=== PATIENT | female | born 1950 | race Two or more races ===

== ENCOUNTER 2024-06-04 14:30 | Inpatient (IN) | payer OTHER ==
[~2024-06-04] VITALS: Ht 154.9 cm; Wt 95.5 kg
--- NOTE | 2024-06-04 15:40 | ED.PDOC ---
SOB-HPI HPI Comments HPI: Poor Historian. 74-year-old female sent by Dr. Eddy office the systems development consultant/critical care for admission to the hospital. Patient has been having hemoptysis for at least two months that is progressively getting worse. 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 She is on Xarelto for history of atrial fibrillation. Patient was found to be hypoxic per the note accompanying her records of 87% at room air. She does not use oxygen at home. Dr. Eddy wants to admitted to the hospital for possible bronchoscopy and further evaluation and repeat CT scan of the chest. Patient is on Xarelto. Vitals: respiratory rate of 16, SpO2 of 93%RA, pulse rate of 70, and a blood pressure of 156/76 PMHx: CHF, AFIB, HTN, asthma, Xarelto/Lasix use PSHx: hysterectomy, appendectomy, cholecystectomy REVIEW OF SYSTEMS: CONSTITUTIONAL: Denies acute: fever, diaphoresis, chills, HEAD: Denies acute: headache, photophobia Eyes: Denies acute: Double vision, vision loss, eye pain, eye discharge. EARS: Denies acute: tinnitus, hearing loss, ear discharge, ear pain, THROAT: Denies acute: sore throat, swelling, difficulty swallowing , pain with swallowing, change in voice. NECK: Denies acute: neck pain, neck swelling, stiff neck. HEART: Denies acute : chest pain, palpitations, LUNGS: Denies acute: wheezing, cough, ABDOMEN: Denies acute: abdominal pain, Nausea, Vomiting, diarrhea, melena , hematemesis, hematochezia SKIN: Denies acute: rash, redness, lesions, itchiness. EXTREMITIES: Denies acute: calf pain, numbness, tingling, weakness, denies pain in extremity. Denies acute: Low back pain. Neuro: Denies acute: focal neurological deficit, motor or sensory focal neurological deficit, tremors, seizure like activity, confusion, dizziness, change in mental status, loss of bowel or bladder function, cauda equina like symptoms. : Denies acute: dysuria, hematuria, flank pain, increase in urinary frequency. PSYCH: Denies acute: hallucination, suicidal ideation, homicidal ideation. FEMALE: Denies acute: abnormal vaginal bleeding, foul odor, unusual discharge. PHYSICAL EXAM: General: no acute distress, awake and alert. Head: normocephalic, atraumatic. Neck: supple, trachea is midline, no swelling. Throat: Normal phonation. Eyes:, no erythema, no purulent discharge, no proptosis, no icterus. Heart: regular rate, regular rhythm, no significant murmur appreciated. Lungs: no apparent respiratory distress, Able to speak in full sentences. No wheezing, no rhonchi, no crackles. No stridors Clear to auscultation bilaterally. Abdomen: non tender to palpation, non distended, soft, no guarding, no rebound, + bowel sounds. Neuro: Awake, Alert, oriented to name, self, situation, follows commands GCS=15. Speech is normal. Skin: no petechia, no purpura, no cyanosis, non-pale, not jaundice. Lower extremities: --2/4 b/l - Pitting edema no deformity, no focal swelling, no calf TTP. Makes eye contact. moves all four extremities. Face: no apparent facial droop. Ambulating in the ED independently. Chief Complaint: Shortness of Breath Time Seen by MD: 15:15 Reviewed notes: Nurses Notes, Allergies Information Source: Patient Mode of Arrival: Ambulatory Was a procedure done? Was a procedure done?: No Differential Dx Differential Diagnosis: Other (DDx include ACS, unstable angina, anxiety, PE, pneumothroax, neoplasm, cardiac ischemia, COPD, asthma, CHF, pleural effusion, tobacco abuse, pneumonia, hypoxia, hypercapnia, anemia., infection/sepsis., pulmonary edema. Asthma, Cardiac tamponade, infection.) X-Ray, Labs, Meds, VS Vital Signs Date Time Temp Pulse Resp B/P (MAP) Pulse Ox O2 Delivery O2 Flow Rate FiO2 06/04/24 18:28 95 Room Air 0.0 06/04/24 18:28 95 Room Air* 0 21 06/04/24 15:23 71 06/04/24 15:15 98.0 70 16 156/76 (102) 93 Lab Test 06/04/24 18:47 06/04/24 16:35 06/04/24 15:42 Range/Units Troponin I High Sensitivity 37 *H 35 *H 34 </=34 ng/L White Blood Count 6.4 4.4-10.8 10^3/uL Red Blood Count 3.46 L 4.0-5.20 10^6/uL Hemoglobin 11.5 L 12.2-16.2 g/dL Hematocrit 34.2 L 36.0-46.0 % Mean Corpuscular Volume 98.9 80.0-100.0 fL Mean Corpuscular Hemoglobin 33.3 H 28.0-32.0 pg Mean Corpuscular Hemoglobin Concent 33.6 32.0-36.0 g/dL Red Cell Distribution Width 16.3 H 11.8-14.3 % Platelet Count 281 140-450 10^3/uL Mean Platelet Volume 7.2 6.9-10.8 fL Neutrophils (%) (Auto) 67.8 37.0-80.0 % Lymphocytes (%) (Auto) 17.4 10.0-50.0 % Monocytes (%) (Auto) 13.0 H 0.0-12.0 % Eosinophils (%) (Auto) 1.3 0.0-7.0 % Basophils (%) (Auto) 0.5 0.0-2.0 % Neutrophils # (Auto) 4.3 1.6-8.6 10 ^3/uL Lymphocytes # (Auto) 1.1 0.4-5.4 10 ^3/uL Monocytes # (Auto) 0.8 0-1.3 10 ^3/uL Eosinophils # (Auto) 0.1 0-0.8 10 ^3/uL Basophils # (Auto) 0 0-0.2 10 ^3/uL Nucleated Red Blood Cells 0.1 % Prothrombin Time 11.7 9.3-11.8 sec Prothrombin Time INR 1.11 0.9-1.15 Activated Partial Thromboplast Time 38.4 H 24.5-34.5 SEC Sodium Level 144 136-145 mmol/L Potassium Level 3.3 L 3.5-5.1 mmol/L Chloride Level 105 98-107 mmol/L Carbon Dioxide Level 31 20-31 mmol/L Anion Gap 8 5-15 Blood Urea Nitrogen 12 9-23 mg/dL Creatinine 0.69 0.550-1.02 mg/dL Glomerular Filtration Rate Calc 91 >90 mL/min BUN/Creatinine Ratio 17.4 10.0-20.0 Serum Glucose 102 74-106 mg/dL Lactic Acid Level 1.2 0.4-2.0 mmol/L Calcium Level 9.0 8.7-10.4 mg/dL Total Bilirubin 0.5 0.2-1.0 mg/dL Aspartate Amino Transferase (AST) 18 13-40 U/L Alanine Aminotransferase (ALT) 15 7-40 U/L Alkaline Phosphatase 124 H 46-116 U/L B-Type Natriuretic Peptide 528.88 0-100 pg/mL Total Protein 5.8 5.7-8.2 g/dL Albumin 3.7 3.2-4.8 g/dL [place] [id number] Ph: [phone] DIAGNOSTIC IMAGING Diagnostic Imaging Report : [id number] Signed PATIENT: GERARDO VALENTIN ACCT: [id number] UNIT: [id number] : 1950 LOC: TELE ROOM / BED: [address] [place] [address] AGE / SEX: 74 / F ADM STATUS: ADM IN SERVICE 1609 ORDERING PHYSICIAN: SID VAZQUEZ DO PROCEDURE(s): CTACH - CT ANGIO CHEST CONTRAST REASON: Hemoptysis, lung mass ORDER NUMBER(s): [id number], ACCESSION NUMBER(s): [id number] INDICATION: Hemoptysis, lung mass COMPARISON: 05/28/2024 and 03/01/2024 report only TECHNIQUE: Multidetector CTA of the chest was performed of the chest with 100 cc of intravenous contrast. PULMONARY ANGIOGRAPHY PROTOCOL was utilized using a bolus-tracking technique centered on the main pulmonary artery. Axial, coronal and sagittal multiplanar and MIP reformats were performed. Radiation Dose : 1. Chest: CTDI volume is 28.48 mGy. Dose-length product is 1039.62 mGy*cm The dose indicators for CT are the volume Computed Tomography (CT) Dose Index (CTDIvol) and the Dose Length Product (DLP), and are measured in units of mGy and mGy-cm, respectively. These indicators are not patient dose, but values generated from the CT scanner acquisition factors. The report includes radiation exposure data for exposures received during this examination. Findings: The thyroid gland is unremarkable. No pulmonary embolism. There is right-sided anterior mediastinal cystic lesion measuring up to 2.7 x 3.8 x 8.7 cm. There there is mediastinal lymphadenopathy largest of the intracranial region measuring up to 1.1 cm. There appears to be fluid within the pericardial recess. Mild 2 moderate cardiomegaly. Ectatic ascending aorta measuring up to 4 cm. Mild dilatation of the trunk up to 33 mm. There is ground-glass opacities bilateral lungs. 4 mm right lower lobe solid nodule abutting the fissure fissure. Right apical and bibasilar atelectasis. Elevated right hemidiaphragm. Trace right-sided pleural effusion. No pneumothorax. There is wall thickening of the esophagus.. Mild gastric wall thickening. Moderate amount of fecal material within the partially visualized colon. Edema of the partially visualized anterior lateral upper abdominal musculatures. Focus of the left glenoid which may represent bone island blastic lesion not excluded. Multilevel severe degenerative changes of the thoracic spine. Compression fracture of L2 of unknown chronicity. Lytic changes of the right glenoid with associated soft tissue component. IMPRESSION: No pulmonary embolism. Ectatic ascending aorta measuring up to 4 cm. Dilatation of the pulmonary trunk up to 3.3 cm. Correlate for pulmonary arterial hypertension. Mild to moderate cardiomegaly with findings suggestive of mild pulmonary edema. Trace right-sided pleural effusion. 2.7 x 3.8 x 8.7 cm cystic lesion over the right anterior mediastinum. Mediastinal lymphadenopathy which may be reactive with neoplasm not excluded. Mild wall thickening of the esophagus. Correlate for esophagitis with neoplasm not excluded. Lytic changes of the right glenoid with associated soft tissue component which is inadequately assessed. Mild wall thickening of the stomach which may be due to inadequate distention with gastritis not excluded. 4 mm right lower lobe solid nodule abutting the fissure which may represent a fissural node with a pulmonary nodule not excluded. Additional findings as above. ATED BY: TERRI BOX DO DICTATED DATE/TIME: 06/04/242023 SIGNED BY: TERRI BOX DO SIGNED DATE/TIME: 06/04/242023 CC: Time of 1ST Reevaluation: 17:00 (The case was discussed with the admitting team (HPI, physical exam, labs and diagnostic tests that were available at the time of disposition, ED course, treatment plan) on the phone. They agreed to evaluate the patient and make the appropriate disposition. --- Yaccobe) Reevaluation 1ST: Unchanged Patient Education/Counseling: Diagnosis, Treatment Family Education/Counseling: No Family Present Comments Patient presented with the above HPI.------workup was initiated. patient was found with the above mentioned diagnosis. Patient was given: Patient ED course and VS have been stabilized. Patient has been reassessed in the ED and remained in a stable condition. Pertinent incidental findings were discussed with the patient and/or family. Patient/family voices understanding and is agreeable with plan. Patient has been observed in the ED adequate length of time to insure improvement/stability. Case was discussed with Dr. Eddy and Dr. Barnes. He came and evaluated the patient at bedside and said he will contact Dr. Eddy himself. patient was admitted to the medicine team for further evaluation and treatment of their presentation. All the reports of any imaging studies that were ordered by myself were reviewed by myself. Departure 1 Departure Time of Disposition: 16:10 Impression: Primary Impression: Hypoxemia Additional Impressions: Lung mass Hemoptysis CHF exacerbation Abnormal finding on CT scan Elevated troponin Disposition: ADMITTED INPATIENT Admit to: Tele Condition: Guarded Discharged With: Self Critical Care Note Critical Care Time?: Yes (45 min-critical care time only) Heart Score Heart Score: Heart Score Response (Comments) Value History Slightly Suspicious 0 EKG Normal 0 Age >65 2 Risk Factors >3 or Hx ASHD 2 Troponin 1-2 x's Normal limit 1 Total 5 I personally scribed for SID VAZQUEZ DO ([email or web address]) on 06/04/24 at 15:40. Electronically submitted by Reji Hughes ([email or web address]). I personally scribed for SID VAZQUEZ DO ([email or web address]) on 06/04/24 at 20:32. Elect ronically submitted by Reji Hughes ([email or web address]). SID VAZQUEZ DO Jun 04, 2024 15:40
--- NOTE | 2024-06-04 15:47 | DVH ---
CHEST RADIOGRAPH Indication:Hemoptysis, SOB Technique: Single frontal view of the chest was obtained Comparison: None FINDINGS: Lines and Tubes: None Lungs: No focal consolidation. Pleura: No effusion. No pneumothorax. Cardiomediastinal contours: Unremarkable Bones: No acute osseous abnormality. IMPRESSION: 1. No acute cardiopulmonary disease.
[2024-06-04 16:07] LABS: Basophils # (auto) 0 10 ^3/uL (0-0.2); Basophils % (auto) 0.5 % (0.0-2.0); Eosinophils # (auto) 0.1 10 ^3/uL (0-0.8); Eosinophils % (auto) 1.3 % (0.0-7.0); Hematocrit 34.2 % (36.0-46.0); Hemoglobin 11.5 g/dL (12.2-16.2); Lymphocytes # (auto) 1.1 10 ^3/uL (0.4-5.4); Lymphocytes % (auto) 17.4 % (10.0-50.0); Mean Corpuscular Hemoglobin 33.3 pg (28.0-32.0); Mean Corpuscular Hgb Conc. 33.6 g/dL (32.0-36.0); Mean Corpuscular Volume 98.9 fL (80.0-100.0); Monocytes # (auto) 0.8 10 ^3/uL (0-1.3); Neutrophils # (auto) 4.3 10 ^3/uL (1.6-8.6); Neutrophils % (auto) 67.8 % (37.0-80.0); Nucleated Red Blood Cells % 0.1 %; Platelet Count (auto) 281 10^3/uL (140-450); Red Blood Cells 3.46 10^6/uL (4.0-5.20); Red Cell Distribution Width 16.3 % (11.8-14.3); White Blood Cell 6.4 10^3/uL (4.4-10.8)
[2024-06-04 16:25] LABS: Alanine Aminotransferase 15 U/L (7-40); Albumin 3.7 g/dL (3.2-4.8); Alkaline Phosphatase 124 U/L (46-116); Anion Gap 8 (5-15); Aspartate Aminotransferase 18 U/L (13-40); BUN/Creatinine Ratio 17.4 (10.0-20.0); Bilirubin, Total 0.5 mg/dL (0.2-1.0); Blood Urea Nitrogen 12 mg/dL (9-23); Carbon Dioxide 31 mmol/L (20-31); Chloride 105 mmol/L (98-107); Glucose 102 mg/dL (74-106); Potassium 3.3 mmol/L (3.5-5.1); Sodium 144 mmol/L (136-145); Total Protein 5.8 g/dL (5.7-8.2)
[2024-06-04 16:27] LABS: INR 1.11 (0.9-1.15); Partial Thromboplastin Time 38.4 SEC (24.5-34.5); Prothrombin Time 11.7 sec (9.3-11.8)
--- NOTE | 2024-06-04 18:08 | DVHINCON2 ---
Date of service: Jun 04, [address] Ospina, Dr Powers Reason for Consultation Hemoptysis, rule out active hemorrhage History of Present Illness 74-year-old woman history of CHF, atrial fibrillation, hypertension, asthma, Xarelto, Lasix who presented to the hospital after being referred from my office due to hemoptysis and hypoxia. She has a pulse oximetry reading of 87% on presentation to the office. She has a history of being on Xarelto for atrial fibrillation. She was an anterior mediastinal mass that was noted on CT chest. Pulmonary consultation is called for evaluation of hemoptysis and bronchoscopy to rule out active hemorrhage. Review of systems: 14 point review of systems is negative unless otherwise noted above. Past Medical History: CHF, Hypertension, DM type II, Hernia, Bowel blockage, Bulging discs, AFib, Arthritis, Hx of gangrene Past Surgical History: Total hysterectomy. Cholecystectomy. Bladder surgery x3. Surgery for left leg fracture. 2 ankle fractures Allergies: ERICH inhibitors, Demerol. Medications: Furosemide 40 mg Potassium chloride 20 mEq. Meloxicam 7.5 mg Synthroid 100 mcg Venlafaxine 150 mg Omeprazole 40 mg Premarin 1.25 mg Metoprolol 25 mg Cyclobenzaprine 10 mg Estradiol 2 mg Clonidine 0.5 mg Mirtazapine 15 mg Red House 10/325 mg Xarelto Buspar. Family History: Mom passed from lung cancer (was a smoker). DM type II. Heart problems Social History: Non-smoker. No alcohol use. No illicit drug use. No pets Allergies: Coded Allergies: ERICH Inhibitors (Verified Allergy, Unknown, 06/04/24) Carisoprodol (Verified Allergy, Unknown, 06/04/24) Home Meds Reported Medications Hydrocodone-Acetaminophen (Hydrocodone/Acetaminophen 10-325 mg) 1 Tab Tab, 1 TAB PO, TAB 06/05/24 Estradiol (Estradiol) 1 Mg Tab, 1 MG PO DAILY, MG 06/05/24 Metoprolol Tartrate (Metoprolol Tartrate) 25 Mg Tab, 25 MG PO for 30 Days, MG 06/05/24 Levothyroxine Sodium (SYNTHROID TABLET) 100 Mcg Tb, 100 MCG GT, TAB 06/05/24 Meloxicam (Meloxicam) 7.5 Mg Tab, 7.5 MG PO, TAB 06/05/24 Potassium Chloride (Klor-Con M20) 20 Meq Tab, 20 MEQ PO, TAB 06/05/24 Furosemide (Furosemide) 40 Mg Tab, 40 MG PO, TAB 06/05/24 Vital Signs Vital Signs Date Time Temp Pulse Resp B/P (MAP) Pulse Ox O2 Delivery O2 Flow Rate FiO2 06/04/24 15:23 71 06/04/24 15:15 98.0 16 156/76 (102) 93 Physical Exam Constitutional: Patient is sitting in chair in no apparent distress. Coughing up blood. Eyes: PERRLA, EOMI. Ears, Nose, Mouth, and Throat: Normal external ear anatomy. Normal hearing. Normal external nose anatomy. No changes in smell sensation. Mucosa moist. No thrush. Neck: No lymphadenopathy. No thyroid enlargement. Trachea midline. Supple. Cardiovascular: +S1, +S2. No murmurs, rubs or gallops. Lungs: Fair air entry bilaterally. Clear to auscultation bilaterally. No wheez ing. No rhonchi. No crackles. Gastrointestinal (Abdomen): Bowel sounds heard in every quadrant. Soft to palpation. Non-tender. Non-distended. Genitourinary: exam deferred. Lymphatic: No lymphadenopathy. Musculoskeletal: Normal joint movement. Skin: No rash. Intact. Warm, dry. Extremities: No bilateral lower extremity edema. Distal pulses palpable. 2+ radial pulses bilaterally. Neurological/Psychiatric: Alert, awake, oriented x 3. CN II-XII intact. No gross motor or sensory deficits. Gait normal. Head/Face: Normocephalic, atraumatic. Labs/Diagnostic Data Labs Test 06/04/24 16:35 06/04/24 15:42 Range/Units White Blood Count 6.4 4.4-10.8 10^3/uL Red Blood Count 3.46 L 4.0-5.20 10^6/uL Hemoglobin 11.5 L 12.2-16.2 g/dL Hematocrit 34.2 L 36.0-46.0 % Mean Corpuscular Volume 98.9 80.0-100.0 fL Mean Corpuscular Hemoglobin 33.3 H 28.0-32.0 pg Mean Corpuscular Hemoglobin Concent 33.6 32.0-36.0 g/dL Red Cell Distribution Width 16.3 H 11.8-14.3 % Platelet Count 281 140-450 10^3/uL Mean Platelet Volume 7.2 6.9-10.8 fL Neutrophils (%) (Auto) 67.8 37.0-80.0 % Lymphocytes (%) (Auto) 17.4 10.0-50.0 % Monocytes (%) (Auto) 13.0 H 0.0-12.0 % Eosinophils (%) (Auto) 1.3 0.0-7.0 % Basophils (%) (Auto) 0.5 0.0-2.0 % Neutrophils # (Auto) 4.3 1.6-8.6 10 ^3/uL Lymphocytes # (Auto) 1.1 0.4-5.4 10 ^3/uL Monocytes # (Auto) 0.8 0-1.3 10 ^3/uL Eosinophils # (Auto) 0.1 0-0.8 10 ^3/uL Basophils # (Auto) 0 0-0.2 10 ^3/uL Nucleated Red Blood Cells 0.1 % Prothrombin Time 11.7 9.3-11.8 sec Prothrombin Time INR 1.11 0.9-1.15 Activated Partial Thromboplast Time 38.4 H 24.5-34.5 SEC Sodium Level 144 136-145 mmol/L Potassium Level 3.3 L 3.5-5.1 mmol/L Chloride Level 105 98-107 mmol/L Carbon Dioxide Level 31 20-31 mmol/L Anion Gap 8 5-15 Blood Urea Nitrogen 12 9-23 mg/dL Creatinine 0.69 0.550-1.02 mg/dL Glomerular Filtration Rate Calc 91 >90 mL/min BUN/Creatinine Ratio 17.4 10.0-20.0 Serum Glucose 102 74-106 mg/dL Lactic Acid Level 1.2 0.4-2.0 mmol/L Calcium Level 9.0 8.7-10.4 mg/dL Total Bilirubin 0.5 0.2-1.0 mg/dL Aspartate Amino Transferase (AST) 18 13-40 U/L Alanine Aminotransferase (ALT) 15 7-40 U/L Alkaline Phosphatase 124 H 46-116 U/L B-Type Natriuretic Peptide 528.88 0-100 pg/mL Total Protein 5.8 5.7-8.2 g/dL Albumin 3.7 3.2-4.8 g/dL Assessment Impression: Acute hypoxic respiratory failure Hemoptysis Anterior mediastinal cystic mass, 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 Asthma Dyspnea Cough Morbid Obesity, BMI 40.0 Obstructive sleep apnea Plan: CT chest w/o contrast (outpatient) notable for a lobular anterior mediastinal cystic mass, 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 Ddx includes thymic or bronchogenic cysts. No pleural effusion or pneumonia. Moderate degenerative changes of T-spine, compression deformity of upper aspect of L2. Patient needs to be referred to PCP for cardiothoracic consult for mediastinoscopy. Obtain CTA of the chest with PE protocol to rule out pulmonary embolism. NPO after midnight Plan for bronchoscopy with bronchoalveolar lavage, possible brushings, possible biopsy. Risks and benefits of procedure were discussed with the patient in detail. She was aware of the risk of hypoxia, hemorrhage, pneumothorax, anesthetic complications and/or . With full knowledge of the risks and benefits, patient agreed to proceed with bronchoscopy for further diagnosis. She was aware that procedure is to inspect instead of the airway to rule out active hemorrhage. Plan is to obtain a lavage of the lung and there was a possibility that culture may be nondiagnostic. With full knowledge of the risks and benefits patient agreed to proceed with this procedure. Supplemental oxygen Keep O2 saturation above 92%. Start antibiotic course Bronchodilators Place specimen cup at bedside to quantify hemoptysis. Pain control. Avoid over-sedation. Incentive spirometry. Obesity complicates all care. Diet and lifestyle modifications for weight reduction. DVT prophylaxis. Prognosis: Guarded given multiple comorbidities. Rest of plan per hospitalist and other consultants. Thank you Dr. Ospina for allowing me to participate in this patient's care. Further recommendations will depend on patient's clinical course. Please do not hesitate to contact me if you have any questions or concerns. This medical document was created using an electronic medical record system with [employer] system. Although this document has been carefully reviewed, there may still be some phonetic and typographical errors. These areas are purely typographical due to imperfections of the software programs, and do not reflect any compromise in the patient's medical care. Plan discussed with: Patient, Other (RN, Priya Currie.) SABRINA OLVERA MD Jun 04, 2024 18:08
[2024-06-04 18:28] VITALS: O2SAT 95
[2024-06-04] MEDS ORDERED: hydrALAZINE HCL 20 MG/ML VL IV PRN (19:00)
[2024-06-04] MEDS ORDERED: MORPHINE SULFATE INJ 2 MG/ml SYRG IV PRN (19:00)
[2024-06-04] MEDS ORDERED: NITROGLYCERIN 0.4 MG SL TAB SL PRN (19:00)
[2024-06-04] MEDS ORDERED: ONDANSETRON HCL 4 MG/2 ML VIAL IV PRN (19:00)
[2024-06-04 20:00] VITALS: BP 156/76; PULSE 79; RESP 16; TEMP 98; O2SAT 95
--- NOTE | 2024-06-04 20:26 | DVH ---
INDICATION: Hemoptysis, lung mass COMPARISON: 05/28/2024 and 03/01/2024 report only TECHNIQUE: Multidetector CTA of the chest was performed of the chest with 100 cc of intravenous contr ast. PULMONARY ANGIOGRAPHY PROTOCOL was utilized using a bolus-tracking technique centered on the rajesh n pulmonary artery. Axial, coronal and sagittal multiplanar and MIP reformats were performed. Radiation Dose : 1. Chest: CTDI volume is 28.48 mGy. Dose-length product is 1039.62 mGy*cm The dose indicators for CT are the volume Computed Tomography (CT) Dose Index (CTDIvol) and the Dose Length Product (DLP), and are measured in units of mGy and mGy-cm, respectively. These indicators are not patient dose, but values generated from the CT scanner acquisition factors. The report includes radiation exposure data for exposures received during this examination. Findings: The thyroid gland is unremarkable. No pulmonary embolism. There is right-sided anterior mediastinal cystic lesion measuring up to 2.7 x 3.8 x 8.7 cm. There the re is mediastinal lymphadenopathy largest of the intracranial region measuring up to 1.1 cm. There ap pears to be fluid within the pericardial recess. Mild 2 moderate cardiomegaly. Ectatic ascending aorta measuring up to 4 cm. Mild dilatation of the tr unk up to 33 mm. There is ground-glass opacities bilateral lungs. 4 mm right lower lobe solid nodule abutting the fiss ure fissure. Right apical and bibasilar atelectasis. Elevated right hemidiaphragm. Trace right-sided pleural effusion. No pneumothorax. There is wall thickening of the esophagus.. Mild gastric wall thickening. Moderate amount of fecal material within the partially visualized colon. Edema of the partially visualized anterior lateral upper abdominal musculatures. Focus of the left gl enoid which may represent bone island blastic lesion not excluded. Multilevel severe degenerative caron nges of the thoracic spine. Compression fracture of L2 of unknown chronicity. Lytic changes of the ri ght glenoid with associated soft tissue component. IMPRESSION: No pulmonary embolism. Ectatic ascending aorta measuring up to 4 cm. Dilatation of the pulmonary trunk up to 3.3 cm. Correlate for pulmonary arterial hypertension. Mild to moderate cardiomegaly with findings suggestive of mild pulmonary edema. Trace right-sided ple ural effusion. 2.7 x 3.8 x 8.7 cm cystic lesion over the right anterior mediastinum. Mediastinal lymphadenopathy which may be reactive with neoplasm not excluded. Mild wall thickening of the esophagus. Correlate for esophagitis with neoplasm not excluded. Lytic changes of the right glenoid with associated soft tissue component which is inadequately assess ed. Mild wall thickening of the stomach which may be due to inadequate distention with gastritis not excl uded. 4 mm right lower lobe solid nodule abutting the fissure which may represent a fissural node with a pu lmonary nodule not excluded. Additional findings as above.
--- NOTE | 2024-06-04 20:39 | DVHHP ---
ADMIT DATE: 06/04/2024 CHIEF COMPLAINT: Coming in for hemoptysis. HISTORY OF PRESENT ILLNESS: This is a 74-year-old female with significant past medical history for congestive heart failure, on Lasix, atrial fibrillation, on Xarelto, history of recent diagnosis of lung mass, who presents to Emergency Room with a chief complaint of hemoptysis since February. The patient says she has been coughing up blood after she is staying at this rented out home. A few months ago apparently the patient says she was exposed to black mold and ever since the patient has been having hemoptysis with dark red, coffee-ground blood clots in it mixed with clear mucus. The patient has not had any issues with fevers or chills. She does have some shortness of breath. Does have home oxygen, but she is not currently using. The patient otherwise denies any chest pain symptoms, any lightheadedness or palpitations. 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 PAST MEDICAL HISTORY: CHF, atrial fibrillation, lung mass, leaky heart valves and history of a murmur. PAST SURGICAL HISTORY: Cholecystectomy, appendectomy. SOCIAL HISTORY: No tobacco. Occasional wine glass. No illicit drugs. MEDICATIONS: At home per medical reconciliation. MEDICATION ALLERGIES: ERICH INHIBITORS, CARISOPRODOL, AND PERCOCET. REVIEW OF SYSTEMS: A 10-point review of systems was covered with the patient and was negative with exception to what was present in history of present illness. PHYSICAL EXAMINATION: VITAL SIGNS: Temperature 98, pulse rate 70, respiratory rate of 16, blood pressure 152/76, pulse ox about 93% on room air. GENERAL: Seems to be alert and oriented x 4, not in acute distress female. Not using extra respiratory muscles of breathing. HEENT: Normocephalic, atraumatic. Extraocular muscles were intact. Pupils are equally round, react to light and accommodations. Mucous membranes are moist. CARDIOVASCULAR: S1, S2 positive, regular rate and rhythm. No rubs, gallops or murmurs. LUNGS: Seems to be clear to auscultation bilaterally. No wheezes, rhonchi or rales. ABDOMEN: Seems to be soft, nontender, nondistended, positive bowel sounds. No guarding or rebound. EXTREMITIES: Lower extremities, the patient has trace to 1+ pitting edema up to the mid shins. No clubbing, no cyanosis. NEUROLOGIC: No focal deficits. Cranial nerves testing 2-12 overall seems to be intact. LABORATORY WORKUP: Shows a white count 6.4, H and H of 11.5 and 34.2, platelet count 281,000. Sodium 134, carbon dioxide 31, anion gap of 8, BUN of 12, creatinine 0.69. Serum glucose of 102. Lactic acid 1.2, calcium 9.0, AST of 18, total bilirubin 0.5, alkaline phosphatase is 124. Troponins initially of 34, repeat of 35. INR of 1.11. IMAGING: Chest x-ray was completed, shows no acute cardiopulmonary disease process. EKG shows sinus rhythm, ventricular rate of 71. DIAGNOSIS: Hemoptysis. SECONDARY DIAGNOSES: History of chronic respiratory failure, asthma, morbid obesity, obstructive sleep apnea. PLAN: The patient will be admitted to medical telemetry floor under observation status. Consultation with Dr. Eddy was requested. Dr. Eddy apparently has already evaluated the patient and requested CT angio of the chest to be completed without contrast. The patient has been scheduled for a bronchoscopy procedure for 8:30 tomorrow morning. The patient's Xarelto will be held at this point in time. The patient can have a cardiac, low-sodium diet and n.p.o. after midnight. The patient to have CBC, BMP repeated for tomorrow morning. Zofran 4 mg IV p.r.n. every 4 hours for nausea and vomiting, morphine 2 mg IV p.r.n. for moderate severe pain. The patient is a full code. DVT prophylaxis, sequential compressive devices. Further recommendations will depend on patient's hospital progression. Doe Kraft MD LM/CAROLINA/SARAH/NIK TID: [id number] RECEIPT: [id number] [facility]ITALPa[facility]
[2024-06-04] MEDS: IOHEXOL 350 MG/ML 100ML IJ ONE (23:01)
[2024-06-04] MEDS: FUROSEMIDE 40 MG/4 ML VIAL IV ONE (23:16)
[2024-06-04 23:38] VITALS: PULSE 77; RESP 18; O2SAT 97
[2024-06-05] VITALS (19 sets, daily range): BP systolic 122–162; BP diastolic 55–98; PULSE 20–88; RESP 16–20; TEMP 97.6–100.2; O2SAT 90–100
[2024-06-05] MEDS: ALBUTEROL SULF 2.5 MG/0.5ML(0.5%) NEB SOLN NEB SCH (01:58)
[2024-06-05] MEDS: IPRATROPIUM BROM 0.5 MG/2.5ML INH SOL NEB SCH (01:58)
[2024-06-05 03:19] LABS: Urine Bacteria None Seen /hpf (None Seen)
[2024-06-05] MEDS: HYDROcodone-ACET 5/325MG TAB PO ONE (03:27)
[2024-06-05 03:33] LABS: Urine Blood Negative /uL (Negative); Urine Clarity Clear (Clear); Urine Color Colorless (Yellow); Urine Protein, UAD Negative (Negative); Urine Specific Gravity 1.011 (1.001-1.035); Urine Urobilinogen Normal (Negative); Urine WBC <1 /hpf (0 - 5); Urine pH 7.5 (5.0-9.0)
[2024-06-05] MEDS ORDERED: METO25TA5 PO (04:16)
[2024-06-05] MEDS ORDERED: ESTR1TAB6 PO (04:16)
[2024-06-05] MEDS ORDERED: FURO40TA4 PO (04:16)
[2024-06-05] MEDS ORDERED: POTA-220 PO (04:16)
[2024-06-05] MEDS ORDERED: MELO7.5T7 PO (04:16)
[2024-06-05] MEDS ORDERED: HYDR-4072 PO (04:16)
[2024-06-05] MEDS ORDERED: LEVO-849 GT (04:16)
[2024-06-05 06:51] LABS: Chloride 106 mmol/L (98-107); Potassium 3.1 mmol/L (3.5-5.1); Sodium 144 mmol/L (136-145)
[2024-06-05 06:52] LABS: Anion Gap 10 (5-15); Carbon Dioxide 28 mmol/L (20-31)
[2024-06-05 06:53] LABS: Calcium 8.7 mg/dL (8.7-10.4)
[2024-06-05 06:57] LABS: BUN/Creatinine Ratio 13.6 (10.0-20.0); Blood Urea Nitrogen 9 mg/dL (9-23); Glucose 106 mg/dL (74-106)
[2024-06-05 07:16] LABS: Basophils # (auto) 0 10 ^3/uL (0-0.2); Basophils % (auto) 0.3 % (0.0-2.0); Eosinophils # (auto) 0.1 10 ^3/uL (0-0.8); Eosinophils % (auto) 1.4 % (0.0-7.0); Hematocrit 34.2 % (36.0-46.0); Hemoglobin 11.4 g/dL (12.2-16.2); Lymphocytes # (auto) 1.1 10 ^3/uL (0.4-5.4); Lymphocytes % (auto) 15.4 % (10.0-50.0); Mean Corpuscular Hemoglobin 32.9 pg (28.0-32.0); Mean Corpuscular Hgb Conc. 33.3 g/dL (32.0-36.0); Monocytes # (auto) 0.9 10 ^3/uL (0-1.3); Monocytes % (auto) 12.3 % (0.0-12.0); Neutrophils # (auto) 4.9 10 ^3/uL (1.6-8.6); Neutrophils % (auto) 70.6 % (37.0-80.0); Nucleated Red Blood Cells % 0.2 %; Platelet Count (auto) 278 10^3/uL (140-450); Red Blood Cells 3.46 10^6/uL (4.0-5.20); Red Cell Distribution Width 16.6 % (11.8-14.3); White Blood Cell 6.9 10^3/uL (4.4-10.8)
[2024-06-05] MEDS ORDERED: NALOXONE HCL 0.4 MG/ML VIAL ONE (08:22)
[2024-06-05] MEDS ORDERED: FLUMAZENIL 0.1 MG/ML INJ 10ML MDV IV ONE (08:22)
[2024-06-05] MEDS ORDERED: LIDOCAINE 2%HCL (LOCAL ANESTH.) INJ 20ML MDV ONE (08:25)
[2024-06-05] MEDS ORDERED: EPINEPHrine HCL 1 MG/1 ML AMP ONE (08:25)
[2024-06-05] MEDS ORDERED: GLYCOPYRROLATE 0.2 MG/ML 1ML VIAL ONE (08:25)
[2024-06-05] MEDS ORDERED: LIDOCAINE 2% JELLY 11ml (GLYDO) ONE (08:25)
[2024-06-05] MEDS ORDERED: SODIUM CHLORIDE LOCK 10 ML ONE (08:28)
[2024-06-05] MEDS: MIDAZOLAM HCL 5 MG/ML-1ML VIAL ONE (09:01)
[2024-06-05] MEDS: fentaNYL CITRATE 100 MCG/2 ML VL ONE (09:01)
--- NOTE | 2024-06-05 09:24 | DVHNC2 ---
Procedure - Bronchoscopy procedure note: Indications: Hemoptysis rule out active hemorrhage, Ground glass opacities bilaterally on CT imaging, Obtain bronchoalveolar lavage (BAL) for cultures. Medicines: See hris specialist notes. Fentanyl 100 mcg IVP and Versed 5 mg IVP. Complications: None Procedure: Patient medications and allergies reviewed. The risks and benefits of the procedure and the sedation options and risk were discussed with the patient. All questions were answered and informed consent was obtained. Patient identification and proposed procedure were verified prior to the procedure by the physician, and a nurse, and the respiratory therapist in the Endoscopy Room. The heart rate, respiratory rate, oxygen saturations, blood pressure, adequacy of pulmonary ventilation, and response to care were monitored throughout the procedure. The physical status of the patient was reassessed after the procedure. After obtaining informed consent, the bronchoscope was introduced through the endotracheal tube and advanced into the trachea bronchial tree of both lungs. The procedure was accomplished without difficulty. The patient tolerated the procedure well. Findings: The trachea is in normal caliber. The arya is sharp. The tracheobronchial tree of the right lung was examined to at least the first subsegmental level. The bronchial mucosa was erythematous. The anatomy in the right lung are normal. There are no endobronchial lesions. There was no secretions. There was mucosal hemorrhage in right middle lobe. It resolved with 10 mL cold saline. Right middle lobe (RML) Bronchoalveolar lavage (BAL) obtained. RML BAL sent for gram stain and culture, viral culture, fungal culture, and AFB smear and culture. The left upper lobe, lingula, and left lower lobe were examined to at least the first subsegmental level. Bronchial mucosa and anatomy in the left upper lobe and lingula are normal. There were no endobronchial lesions. There was no secretions. Left upper lobe (MEKHI) Bronchoalveolar lavage (BAL) obtained. MEKHI BAL sent for gram stain and culture, viral culture, fungal culture, and AFB smear and culture. There was no active bleeding at the completion of the procedure. Estimated blood loss: Less than 5 mL. Impression: RML BAL performed MEKHI BAL performed RML mucosal hemorrhage, resolved with cold saline Erythematous mucosa in R1-R10 Recommendation: Follow-up RML and MEKHI BAL results. Complete antibiotic course with cefdinir 300 mg p.o. q.12 hours for 10 days. Complete antifungal course of Diflucan 100 mg p.o. q.12 hours for 10 days. Procedure codes: 24124, bronchoscopy, rigid and flexible, including fluoroscopic guidance, one performed; with bronchial endobronchial broncho-alveolar lavage, single or multiple sites SABRINA OLVERA MD Jun 05, 2024 09:24
--- NOTE | 2024-06-05 09:25 | DVHNC2 ---
Procedure - I administered moderate sedation throughout the 10 minutes of the procedure. An independent observer administered medications at my direction and monitored the patient's level of consciousness and physiological status throughout the procedure. CPT 46210 for the first 15 minutes. CONSCIOUS SEDATION PROCEDURE NOTE: Procedural Sedation Performed by: Dr Eddy Indications: Sedation for Bronchoscopy for BAL and rule out hemorrhage [place] Protocol: a time out was performed and the correct patient and site were verified Consent: The risks and benefits of monitored anesthesia care, including the risk of aspiration, deep sedation requiring airway management including possible intubation, nausea/vomiting and the risks of not performing the procedure, including severe pain and inability to complete the procedure, were all discussed with the patient. The alternatives of performing the procedure, including local anesthesia and IV analgesia, also discussed. The patient has a ride home available. ASA Class: II-mild systemic disease Mallampati Score: 2 Pre-anesthesia evaluation, including history, exam, and informed consent is documented in the note above. Monitoring: Continuous monitoring of heart rate, respiratory rate, pulse oximetry and ETCO2. Supplemental oxygen prior to and during procedure via nasal cannula. Resuscitation equipment available at the bedside during sedation. Intra-service start time: 903 am Intra-service stop time: 913 am The patient received fentanyl 100 mcg IVP and Versed 5 mg IVP and dosages were recorded on the sedation form. The patient was recovered from the sedation without complication or incident. Patient returned to pre-sedation level of awar eness. The monitoring was discontinued at this time. Post-anesthesia evaluation: Respiratory function, cardiovascular function, temperature, and mental status [did/did not] return to pre-anesthetic state. Pain was controlled. The patient did tolerate p.o. SABRINA EDDY MD Jun 05, 2024 09:25
--- NOTE | 2024-06-05 10:09 | DVHPN2 ---
Progress Note - Dictate Date Seen: Jun 05, 2024 Medical Necessity Reason Pt with a Central, PICC or Fol: No Subjective Patient seen and examined at bedside. On supplemental oxygen. Overnight events reviewed. vital signs Vital Sign Date Time Temp Pulse Resp B/P (MAP) Pulse Ox O2 Delivery O2 Flow Rate FiO2 06/05/24 08:28 97 Nasal Cannula* 3 32 06/05/24 04:56 98.0 20 20 146/56 (86) 98.0 Total Intake and Output 06/04/24 06/04/24 06/05/24 15:00 23:00 07:00 Intake Total 0 ml Balance 0 ml medications Current Medications Medications Dose Ordered Sig/Francheska Route Start Time Stop Time Status Last Admin Dose Admin Albuterol 2.5 mg Q6HR NEB 06/05/24 00:00 06/05/24 01:58 2.5 MG Ipratropium [place] 0.5 mg Q6HR NEB 06/05/24 00:00 06/05/24 01:58 0.5 MG Nitroglycerin 0.4 mg Q5MINP PRN SL 06/04/24 19:00 Morphine Sulfate 2 mg Q30M PRN IV 06/04/24 19:00 Ondansetron HCl 4 mg Q6HPRN PRN IV 06/04/24 19:00 Hydralazine HCl 10 mg Q6HP PRN IV 06/04/24 19:00 objective Constitutional: Patient is sitting in chair in no apparent distress. Eyes: PERRLA, EOMI. Ears, Nose, Mouth, and Throat: Normal external ear anatomy. Normal hearing. Normal external nose anatomy. No changes in smell sensation. Mucosa moist. No thrush. Neck: No lymphadenopathy. No thyroid enlargement. Trachea midline. Supple. Cardiovascular: +S1, +S2. No murmurs, rubs or gallops. Lungs: Fair air entry bilaterally. Clear to auscultation bilaterally. No wheezing. No rhonchi. No crackles. Gastrointestinal (Abdomen): Bowel sounds heard in every quadrant. Soft to palpation. Non-tender. Non-distended. Genitourinary: exam deferred. Lymphatic: No lymphadenopathy. Musculoskeletal: Normal joint movement. Skin: No rash. Intact. Warm, dry. Extremities: No bilateral lower extremity edema. Distal pulses palpable. 2+ radial pulses bilaterally. Neurological/Psychiatric: Alert, awake, oriented x 3. CN II-XII intact. No gross motor or sensory deficits. Gait normal. Head/Face: Normocephalic, atraumatic. 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 Cystic lesion over the right anterior mediastinum: 2.7 x 3.8 x 8.7 cm; enlarging compared to previous measurement Pulmonary edema Pleural effusion Atelectasis Events: CT of the chest reported images reviewed. No acute pulmonary embolism. Dilation of the pulmonary trunk. Recommend outpatient echocardiogram to evaluate right ventricular systolic pressure and left ventricular ejection fraction. 4 mm right lower lobe pulmonary nodule abutting the fissure, possibly reactive. Recommend follow up in 12 months. Nonetheless patient will get a CT chest in 6-8 weeks to evaluate for resolution of ground-glass opacity seen on imaging. Patient complains of sore throat status post procedure. She had bronchoscopy with bronchoalveolar lavage of the right middle lobe and left upper lobe. Specimens were sent for Gram stain and culture, fungal culture, viral culture and AFB smear and culture. Recommend to complete cefdinir 300 mg p.o. q.12 hours for 10 days and Diflucan 100 mg p.o. q.12 hours for 10 days. Patient was to follow up in office in the next 2-4 weeks. Rest of plan as outlined below. Plan: CT chest w/o contrast (outpatient) notable for a lobular anterior mediastinal cystic mass, 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 Ddx includes thymic or bronchogenic cysts. No pleural effusion or pneumonia. Moderate degenerative changes of T-spine, compression deformity of upper aspect of L2. Patient needs to be referred to PCP for cardiothoracic consult for mediastinoscopy. Supplemental oxygen Keep O2 saturation above 92%. Complete antibiotic course Bronchodilators Pain control. Avoid over-sedation. Incentive spirometry. Obesity complicates all care. Diet and lifestyle modifications for weight reduction. DVT prophylaxis. Prognosis: Guarded given multiple comorbidities. Rest of plan per hospitalist and other consultants. Thank you Dr. Adan for allowing me to participate in this patient's care. Further recommendations will depend on patient's clinical course. Please do not hesitate to contact me if you have any questions or concerns. This medical document was created using an electronic medical record system with [employer] dictation system. Although this document has been carefully reviewed, there may still be some phonetic and typographical errors. These areas are purely typographical due to imperfections of the software programs, and do not reflect any compromise in the patient's medical care. Plan discussed with: Patient, Other (RN, MD Dr Adan) SABRINA OLVERA MD Jun 05, 2024 10:09
--- NOTE | 2024-06-05 10:54 | DVHDS2 ---
Discharge Summary Date of Admission Jun 04, 2024 at 18:54 Date of Discharge: Jun 05, 2024 Labs/Diagnostic Data: Laboratory Results Test 06/05/24 06:13 06/05/24 02:00 06/04/24 15:42 White Blood Count 6.9 10^3/uL (4.4-10.8) Red Blood Count 3.46 10^6/uL (4.0-5.20) Hemoglobin 11.4 g/dL (12.2-16.2) Hematocrit 34.2 % (36.0-46.0) Mean Corpuscular Volume 99.0 fL (80.0-100.0) Mean Corpuscular Hemoglobin 32.9 pg (28.0-32.0) Mean Corpuscular Hemoglobin Concent 33.3 g/dL (32.0-36.0) Red Cell Distribution Width 16.6 % (11.8-14.3) Platelet Count 278 10^3/uL (140-450) Mean Platelet Volume 7.6 fL (6.9-10.8) Neutrophils (%) (Auto) 70.6 % (37.0-80.0) Lymphocytes (%) (Auto) 15.4 % (10.0-50.0) Monocytes (%) (Auto) 12.3 % (0.0-12.0) Eosinophils (%) (Auto) 1.4 % (0.0-7.0) Basophils (%) (Auto) 0.3 % (0.0-2.0) Neutrophils # (Auto) 4.9 10 ^3/uL (1.6-8.6) Lymphocytes # (Auto) 1.1 10 ^3/uL (0.4-5.4) Monocytes # (Auto) 0.9 10 ^3/uL (0-1.3) Eosinophils # (Auto) 0.1 10 ^3/uL (0-0.8) Basophils # (Auto) 0 10 ^3/uL (0-0.2) Nucleated Red Blood Cells 0.2 % Sodium Level 144 mmol/L (136-145) Potassium Level 3.1 mmol/L (3.5-5.1) Chloride Level 106 mmol/L (98-107) Carbon Dioxide Level 28 mmol/L (20-31) Anion Gap 10 (5-15) Blood Urea Nitrogen 9 mg/dL (9-23) Creatinine 0.66 mg/dL (0.550-1.02) Glomerular Filtration Rate Calc 92 mL/min (>90) BUN/Creatinine Ratio 13.6 (10.0-20.0) Serum Glucose 106 mg/dL (74-106) Calcium Level 8.7 mg/dL (8.7-10.4) Urine Color Colorless (Yellow) Urine Clarity Clear (Clear) Urine pH 7.5 (5.0-9.0) Urine Specific [place] 1.011 (1.001-1.035) Urine Protein Negative (Negative) Urine Ketones Negative (Negative) Urine Blood Negative /uL (Negative) Urine Nitrite Negative (Negative) Urine Bilirubin Negative (Negative) Urine Urobilinogen Normal mg/dL (Negative) Urine Leukocyte Esterase Negative /uL (Negative) Urine RBC None seen /hpf (0 - 4) Urine WBC <1 /hpf (0 - 5) Urine Squamous Epithelial Cells Few /hpf (<5) Urine Bacteria None seen /hpf (None Seen) Urine Glucose Normal mg/dL (Normal) Prothrombin Time 11.7 sec (9.3-11.8) Prothrombin Time INR 1.11 (0.9-1.15) Activated Partial Thromboplast Time 38.4 SEC (24.5-34.5) Lactic Acid Level 1.2 mmol/L (0.4-2.0) Total Bilirubin 0.5 mg/dL (0.2-1.0) Aspartate Amino Transferase (AST) 18 U/L (13-40) Alanine Aminotransferase (ALT) 15 U/L (7-40) Alkaline Phosphatase 124 U/L (46-116) B-Type Natriuretic Peptide 528.88 pg/mL (0-100) Total Protein 5.8 g/dL (5.7-8.2) Albumin 3.7 g/dL (3.2-4.8) Other Laboratory Tests 06/05/24 06:13 Brief Hx & Hospital Course: Patient is a 74-year-old female with past medical history of CHF, atrial fibrillation on Xarelto, recent diagnosis of lung mass who presented to the ER due to hemoptysis since March 11, 2024. 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 Patient underwent CT angio of the chest with contrast which was negative for pulmonary embolism. It is notable for an ectatic ascending aorta measuring up to 4 cm. The pulmonary trunk was dilated up to 3.3 cm. There is a 2.7 x 3.8 x 8.7 cm anterior mediastinal cystic lesion. Patient underwent bronchoscopy which was notable for mucosal hemorrhage in the right middle lobe. The mucosa was erythematous throughout that resolved with cold saline. BAL was taken from right middle lobe and left upper lobe. Patient was monitored for several hours after her bronchoscopy. Her diet was resumed without any issues. Of note, patient's troponin was noted to be 35, 35, 37, 34. Patient describes non- specific chest pain for the past two months. She notes it is sometimes worse with exertion. She denies having any history of SC. Patient is followed by Dr. Louise, coremaker experimental. These findings were discussed with him who recommended outpatient follow up with stress test. Patient was discharged on Cefdinir and Diflucan for 10 days per pulmonary. She is to follow up with pulmonary for her bronchoscopy results. Patient discharged in stable condition. [facility] to arrange follow up appointments. Condition at Discharge: Fair Final Diagnosis/Problems List Hemoptysis Secondary Diagnosis: Lung Mass Concerning for Malignancy CHF Chronic Respiratory Failure Morbid Obesity Discharge Disposition: Home Discharge Statement: "Patient was advised to return to the ER or call 911 if any headaches, dizziness, shortness of breath, chest pain, abdominal pain, bleeding, fevers, or worsening of medical condition. Patient was counseled about treatment plan, medications, possible side effects, patientverbalized understanding. All questions were answered to the best of my ability. This discharge took greater then 30 minutes in planning, reviewing documentation, counseling the patient, and discussing with other team members." ASSESSMENT ASSESSMENT Assessment DEWAYNE VASQUEZ DO Jun 05, 2024 10:54
--- NOTE | 2024-06-05 11:47 | DVH ---
EXAM: XY CHEST XRAY 1 VIEW Indication:s/p Bronchoscopy with BAL, r/o Pneumothorax Technique: Single frontal view of the chest was obtained Comparison: XY CHEST PORTABLE on DOS: 06/04/24 FINDINGS: Lines and Tubes: None Lungs: No focal consolidation. Pleura: No effusion. No pneumothorax. Cardiomediastinal contours: Unremarkable Bones: No acute osseous abnormality. IMPRESSION: No pneumothorax. No acute cardiopulmonary disease.
[2024-06-05] MEDS: METOPROLOL SUCCINATE XL 50 MG TAB PO SCH (11:51)
[2024-06-05] MEDS: FUROSEMIDE 40 MG TAB PO SCH (11:51)
[2024-06-05] MEDS: HYDROcodone-ACET 10/325MG TAB PO PRN (11:52)
[2024-06-05] MEDS: POTASSIUM EFFERVESENT TAB 25 MEQ PO SCH (11:55)
[2024-06-05] MEDS ORDERED: RIVA20TA PO (11:59)
[2024-06-05] MEDS ORDERED: levoFLOXacin 750MG 150 ML IV SCH (13:04)
[2024-06-05] MEDS ORDERED: CEFD300C2 PO (13:29)
[2024-06-05] MEDS ORDERED: FLUC200T PO (13:30)
--- NOTE | 2024-06-05 14:36 | DVH ---
CLINICAL INDICATION: Right knee pain s/p fall TECHNIQUE: XY R KNEE 4V XRAY Comparison: None FINDINGS/IMPRESSION: Cortical irregularity involving the proximal fibular shaft, which could represent an avulsion fractur e.
[2024-06-05] MEDS: FLUCONAZOLE 200MG/100ML 100 ML IV SCH (15:17)
[2024-06-05] MEDS: levoFLOXacin 250 MG TAB PO ONE (18:26)
[2024-06-06] VITALS (14 sets, daily range): BP systolic 127–156; BP diastolic 38–71; PULSE 58–115; RESP 12–20; TEMP 36.8; O2SAT 94–100
[2024-06-06] MEDS: FLUCONAZOLE 200MG/100ML 100 ML IV SCH (10:00)
[2024-06-06] MEDS ORDERED: IPRA0.00 IN (11:01)
[2024-06-06] MEDS: levoFLOXacin 250 MG TAB PO SCH (11:10)
[2024-06-06] MEDS: HYDROcodone-ACET 10/325MG TAB PO ONE (11:15)
--- NOTE | 2024-06-06 11:16 | ECG ---
[facility] Test Date: 2024-06-04 Test Time: 15:23:12 Pat Name: GERARDO VALENTIN Department: ER Room: 0273T Gender: F Supervisor Pairing And Inspecting: NICOLAS : 1950 Requested By: SID AVZQUEZ Order Number: [id number] Reading MD: Measurements Intervals [place] Rate: 71 P: 34 UT: 149 QRS: 33 QRSD: 103 T: 63 QT: 417 QTc: 454 Interpretive Statements Sinus rhythm Left atrial enlargement Please click the below link to view image of tracing.
--- NOTE | 2024-06-06 18:56 | DVHPN2 ---
Progress Note - Dictate Date Seen: Jun 06, 2024 Medical Necessity Reason Pt with a Central, PICC or Fol: No Subjective Patient seen and examined at bedside. On supplemental oxygen. Overnight events reviewed. vital signs Vital Sign Date Time Temp Pulse Resp B/P (MAP) Pulse Ox O2 Delivery O2 Flow Rate FiO2 06/06/24 17:31 96 Nasal Cannula* 3 32 06/06/24 17:31 69 16 06/06/24 17:16 98.5 156/71 (99) 98.5 Total Intake and Output 06/05/24 06/05/24 06/06/24 15:00 23:00 07:00 Intake Total 1440 ml 200 ml Balance 1440 ml 200 ml objective Constitutional: Patient is sitting in chair in no apparent distress. On supplemental oxygen. Eyes: PERRLA, EOMI. Ears, Nose, Mouth, and Throat: Normal external ear anatomy. Normal hearing. Normal external nose anatomy. No changes in smell sensation. Mucosa moist. No thrush. Neck: No lymphadenopathy. No thyroid enlargement. Trachea midline. Supple. Cardiovascular: +S1, +S2. No murmurs, rubs or gallops. Lungs: Decreased air entry bilaterally. Clear to auscultation bilaterally. No wheezing. No rhonchi. No crackles. Gastrointestinal (Abdomen): Bowel sounds heard in every quadrant. Soft to palpation. Non-tender. Non-distended. Genitourinary: exam deferred. Lymphatic: No lymphadenopathy. Musculoskeletal: Normal joint movement. Skin: No rash. Intact. Warm, dry. Extremities: No bilateral lower extremity edema. Distal pulses palpable. 2+ radial pulses bilaterally. Neurological/Psychiatric: Alert, awake, oriented x 3. CN II-XII intact. No gross motor or sensory deficits. Gait normal. Head/Face: Normocephalic, atraumatic. 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 Cystic lesion over the right anterior mediastinum: 2.7 x 3.8 x 8.7 cm; enlarging compared to previous measurement Pulmonary edema Pleural effusion Atelectasis Events: Remains on supplemental O2 at 3 LPM NC. Taper O2 as tolerated. Continue antibiotics Continue bronchodilators q.6 hours Incentive spirometry Patient is stable for discharge from the pulmonary standpoint. CT of the chest reported images reviewed. No acute pulmonary embolism. Dilation of the pulmonary trunk. Recommend outpatient echocardiogram to evaluate right ventricular systolic pressure and left ventricular ejection fraction. 4 mm right lower lobe pulmonary nodule abutting the fissure, possibly reactive. Recommend follow up in 12 months. Nonetheless patient will get a CT chest in 6-8 weeks to evaluate for resolution of ground-glass opacity seen on imaging. S/p bronchoscopy with bronchoalveolar lavage of the right middle lobe and left upper lobe. Specimens were sent for Gram stain and culture, fungal culture, viral culture and AFB smear and culture - follow up culture results Recommend to complete cefdinir 300 mg p.o. q.12 hours for 10 days and Diflucan 100 mg p.o. q.12 hours for 10 days. Patient is to follow up in office in the next 2-4 weeks. Rest of plan as outlined below. Plan: CT chest w/o contrast (outpatient) notable for a lobular anterior mediastinal cystic mass, 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 Ddx includes thymic or bronchogenic cysts. No pleural effusion or pneumonia. Moderate degenerative changes of T-spine, compression deformity of upper aspect of L2. Patient needs to be referred to PCP for cardiothoracic consult for mediastinoscopy. Supplemental oxygen Keep O2 saturation above 92%. Complete antibiotic course Bronchodilators Pain control. Avoid over-sedation. Incentive spirometry. Obesity complicates all care. Diet and lifestyle modifications for weight reduction. DVT prophylaxis. Prognosis: Guarded given multiple comorbidities. Rest of plan per hospitalist and other consultants. Thank you Dr. Adan for allowing me to participate in this patient's care. Further recommendations will depend on patient's clinical course. Please do not hesitate to contact me if you have any questions or concerns. This medical document was created using an electronic medical record system with [employer] system. Although this document has been carefully reviewed, there may still be some phonetic and typographical errors. These areas are purely typographical due to imperfections of the software programs, and do not reflect any compromise in the patient's medical care. Plan discussed with: Patient, Other (RN Antonia) SABRINA OLVERA MD Jun 06, 2024 18:56
[2024-06-06] MEDS ORDERED: POTASSIUM EFFERVESENT TAB 25 MEQ PO SCH (22:00)
== END 2024-06-06 17:50 | disposition home or self-care (01) | DRG 291 ==
LOC: ER 14:30 → TELE 18:54 → TELE-WESTW 18:56 → OBSVTOIN 06-06 11:03
PROVIDERS: ADMIT Student in an Organized Health Care Education/Training Program; ATTEND Student in an Organized Health Care Education/Training Program
PROC: 0B9G8ZX Drainage of Left Upper Lung Lobe, Via Natural or Artificial Opening Endoscopic, Diagnostic (ICD-10-PCS; 2024-06-05)
PROC: 0B9D8ZX Drainage of Right Middle Lung Lobe, Via Natural or Artificial Opening Endoscopic, Diagnostic (ICD-10-PCS; principal; 2024-06-05 08:50)
DX: I11.0 Hypertensive heart disease with heart failure (principal); I50.33 Acute on chronic diastolic (congestive) heart failure; J96.21 Acute and chronic respiratory failure with hypoxia; R04.89 Hemorrhage from other sites in respiratory passages; J98.11 Atelectasis; Z68.41 Body mass index [BMI] 40.0-44.9, adult; R04.2 Hemoptysis; E66.01 Morbid (severe) obesity due to excess calories; G47.33 Obstructive sleep apnea (adult) (pediatric); I48.91 Unspecified atrial fibrillation; J45.909 Unspecified asthma, uncomplicated; R59.0 Localized enlarged lymph nodes; Z90.710 Acquired absence of both cervix and uterus; Z90.49 Acquired absence of other specified parts of digestive tract; Z79.01 Long term (current) use of anticoagulants; Z80.1 Family history of malignant neoplasm of trachea, bronchus and lung; Z83.3 Family history of diabetes mellitus; Z99.81 Dependence on supplemental oxygen
CPT/HCPCS: 31624; 31630; 99291; C7556; 36415; 71045; 71275; 73564; 80048; 80053; 81001; 83605; 83880; 84484; 85025; 85610; 85730; 86850; 86900; 86901; 87070; 87077; 87186; 87205; 93005; 94640; G0378; J0171; J1450; J2250